=== PATIENT | female | born 1965 | race Two or more races ===

== ENCOUNTER 2019-11-30 23:01 | Emergency (ER) | payer SELFPAY ==
[~2019-11-30] VITALS: Ht 152.4 cm; Wt 89.6 kg
--- NOTE | 2019-11-30 23:05 | NUR ---
Ppt BIB [facility] c/o weakness/dizziness x1 day. pt is here from [facility] [place] and was out walking all day in the heat and smoke in [place] with heavy ETOH conspumtion, which is not normal for her. pt reports that she is tired and not feeling well. pt has no obvious injuries and denies pain. pt is currently recieving chemo for bone cancer but is unsure of when her last chemo was given. no family at bedside
--- NOTE | 2019-11-30 23:18 | NUR ---
Dr. Ramos has been to bedside for eval pt to CT scan via [facility]
[2019-11-30 23:46] LABS: BASOPHILS # (AUTO) 0.02 x10^3/uL (0-0.1); BASOPHILS % (AUTO) 1 % (0-1); EOSINOPHILS # (AUTO) 0.15 x10^3/uL (0-0.4); EOSINOPHILS % (AUTO) 3 % (1-7); LYMPHOCYTES # (AUTO) 2.57 x10^3/uL (1-3.4); LYMPHOCYTES % (AUTO) 54 % (22-44); MD NO; MEAN CORPUSCULAR HEMOGLOBIN 27.9 pg (27.0-34.8); MEAN CORPUSCULAR HGB CONC 33.2 g/dL (32.4-35.8); MEAN CORPUSCULAR VOLUME 84.1 fL (80-100); MEAN PLATELET VOLUME 7.6 fL (7.4-10.4); MONOCYTES # (AUTO) 0.36 x10^3/uL (0.2-0.8); MONOCYTES % (AUTO) 8 % (2-9); NEUTROPHILS # (AUTO) 1.64 x10^3/uL (1.8-6.8); NEUTROPHILS % (AUTO) 35 % (42-75); PLATELET COUNT 135 x10^3/uL (130-400); RED BLOOD COUNT 4.65 x10^6/uL (3.82-5.3); RED CELL DISTRIBUTION WIDTH 17.5 % (9.6-15.2)
--- NOTE | 2019-11-30 23:50 | NUR ---
pt has returned form CT and is incontinent of urine. pt cleaned and montse care given. fresh linens applied. pt positioning for comfort. warm blankets given for comfort. pt tearful. EKG at bedside
[2019-11-30 23:59] LABS: ALBUMIN 2.9 g/dL (3.4-5.0); ANION GAP 8 mmol/L (5-15); CALCIUM 8.1 mg/dL (8.5-10.1); CHLORIDE 112 mmol/L (98-107); CREATININE 0.52 mg/dL (0.55-1.02)
[2019-12-01 00:13] LABS: SALICYLATE LEVEL < 1.7 mg/dL (2.8-20.0)
--- NOTE | 2019-12-01 00:30 | NUR ---
pt sleeping in position of comfort. no apparent distress
--- NOTE | 2019-12-01 01:30 | NUR ---
pt has been assisted to bedpan and urine sample collected. pt is more awake and talking about her day. no c/o at this time. calm and cooperative
[2019-12-01 01:47] LABS: MICROSCOPIC NOT IND
[2019-12-01 01:59] LABS: AMPHETAMINE SCREEN, URINE Negative (Negative); BARBITURATE SCREEN, URINE Negative (Negative); BENZODIAZEPINE SCREEN, URINE Negative (Negative); CANNABINOID SCREEN, URINE Negative (Negative); COCAINE SCREEN, URINE Negative (Negative); METHADONE SCREEN, URINE Negative (Negative); OPIATE SCREEN, URINE Negative (Negative)
--- NOTE | 2019-12-01 02:30 | NUR ---
pt sleeping. no apparent distress. will continue to monitor
--- NOTE | 2019-12-01 03:15 | NUR ---
report to Karissa MELCHOR for lunch
--- NOTE | 2019-12-01 04:20 | NUR ---
pt is awake. ambulated to BR. well tolerated. pt family member has been contacted to pick her up
[2019-12-01 05:21] VITALS: BP 125/86
== END 2019-12-01 05:25 | disposition home or self-care (01) ==
LOC: ED 12-01 04:55
DX: G92 Toxic encephalopathy (principal); F10.129 Alcohol abuse with intoxication, unspecified; R94.31 Abnormal electrocardiogram [ECG] [EKG]; R41.0 Disorientation, unspecified; E11.9 Type 2 diabetes mellitus without complications; I10 Essential (primary) hypertension; Y90.9 Presence of alcohol in blood, level not specified
CPT/HCPCS: 36415; 70450; 80048; 80307; 81003; 82040; 85025; 93005; 99285